=== PATIENT | female | born 1945 | race Two or more races ===

== ENCOUNTER 2018-03-02 00:08 | Emergency (ER) | payer OTHER, MEDICAID ==
[~2018-03-02] VITALS: Ht 154.9 cm; Wt 47.6 kg
--- NOTE | 2018-03-02 00:08 | NUR ---
[id number] FR HOME FOR C/O PALPITATIONS W/ PVCS, GETTING WORSE X PAST 4 DAYS, A-FIB W/ HISTORY OF BACK FRACTURES. NO CHETS PAIN. PT IS HYPERTENSIVE BUT OTHERWISE VSS NAD A/OX4. WILL CONTINUE TO MONITOR FOR ANY CHANGES DURNIG THE SHIFT.
--- NOTE | 2018-03-02 00:09 | NUR ---
ER MD WHITLOCK AT BEDSIDE FOR EVAL
--- NOTE | 2018-03-02 00:26 | NUR ---
EKG AT BEDSIDE
--- NOTE | 2018-03-02 00:56 | NUR ---
EKG AT BEDSIDE
--- NOTE | 2018-03-02 01:00 | NUR ---
IV LINE STARTED AND BLOOD SENT TO LAB WITH RADIO HOST
--- NOTE | 2018-03-02 01:12 | NUR ---
CHEST XRAY AT BEDSIDE
[2018-03-02 01:26] LABS: BASOPHILS % (AUTO) 0.5 % (0.0-2.0); EOSINOPHILS % (AUTO) 2.8 % (0.0-6.0); HEMATOCRIT 32 % (33-45); HEMOGLOBIN 10.7 g/dL (11.5-14.8); LYMPHOCYTES # (AUTO) 1.7 /CMM (0.8-4.8); LYMPHOCYTES % (AUTO) 33.1 % (20.0-44.0); MEAN CORPUSCULAR HGB CONC 34 g/dl (31.0-36.0); MEAN CORPUSCULAR VOLUME 96 fL (82-100); MONOCYTES # (AUTO) 0.6 /CMM (0.1-1.30); MONOCYTES % (AUTO) 11.9 % (2.0-12.0); NEUTROPHILS # (AUTO) 2.7 /CMM (1.8-8.9); NEUTROPHILS % (AUTO) 51.7 % (43.0-81.0); PLATELET COUNT (AUTO) 297 /CMM (150-450); RED BLOOD CELL COUNT(AUTO) 3.32 MIL/uL (4.0-5.2); WHITE BLOOD COUNT (AUTO) 5.3 K/uL (4.3-11.0)
[2018-03-02 01:37] LABS: CALCIUM, SERUM 8.9 mg/dL (8.5-10.1); CARBON DIOXIDE 30 mmol/L (21-32); CHLORIDE 100 mmol/L (98-107); CREATININE 0.9 mg/dL (0.6-1.3); GLUCOSE 95 mg/dL (74-106); POTASSIUM 3.8 mmol/L (3.5-5.1); SODIUM SERUM 137 mmol/L (136-145); UREA NITROGEN, BLOOD 9 mg/dL (7-18)
[2018-03-02 01:39] LABS: D-DIMER 0.53 mg/L(FEU (0.17-0.50); INR 1.02 (0.87-1.13)
[2018-03-02 01:44] LABS: TROPONIN I < 0.017 ng/mL (0.00-0.056)
[2018-03-02 02:59] LABS: MAGNESIUM 1.9 mg/dL (1.8-2.4)
[2018-03-02 03:00] LABS: THYROID STIMULATING HORMONE 2.568 uIU/mL (0.358-3.74)
[2018-03-02 03:30] VITALS: BP 144/88
== END 2018-03-02 03:31 | disposition home or self-care (01) ==
LOC: ER 00:14
DX: R00.2 Palpitations (principal); I10 Essential (primary) hypertension; I48.91 Unspecified atrial fibrillation; J44.9 Chronic obstructive pulmonary disease, unspecified; Z87.891 Personal history of nicotine dependence; Z88.1 Allergy status to other antibiotic agents; Z88.2 Allergy status to sulfonamides; Z90.710 Acquired absence of both cervix and uterus; Z88.8 Allergy status to other drugs, medicaments and biological substances; Z91.048 Other nonmedicinal substance allergy status; Z98.890 Other specified postprocedural states
CPT/HCPCS: 36415; 71045; 80048; 83735; 84443; 84484; 85025; 85378; 85730; 93005 ×2; 99285; A4606; Z7610